=== PATIENT | female | born 1935 | race Caucasian/White ===

== ENCOUNTER 2016-11-05 14:56 | Emergency (ER) | payer MEDICARE ==
[2016-11-05 15:12] VITALS: BMI 19.3
--- NOTE | 2016-11-05 15:50 | EDPRACDOC ---
- General Information Chief Complaint: Generalized Weakness Stated Complaint: SENT BY DR. FABIÁN ESPINO HGB Time Seen by Provider: 11/05/16 15:35 Information Source: Patient Mode Of Arrival: Car Home Medications: Home Medications Aspirin (Enteric Coated) [Halfprin] 81 mg PO DAILY 09/23/14 Cholecalciferol [Vitamin D3 (cholecalciferol)] 1,000 units PO DAILY 09/23/14 Fluticasone/Salmeterol [Advair 100-50 Diskus] 1 puff INH BID 09/23/14 Hydrochlorothiazide 25 mg PO DAILY 09/23/14 Multivit-Min/FA/Lycopene/Lut [Centrum Silver Tablet] 1 tab PO BID 09/23/14 Calcium Carb & Cit/Vitamin D3 [Calcium + D3 ER Tab (600mg/500IU)] 2 tabs PO BID 02/03/15 Hydrocodone/Chlorphen P-Stirex [Tussicaps 5 mg-4 mg Capsule] 1 each PO BID #20 cap.sr.12h 02/03/15 Omeprazole Magnesium [Prilosec Otc] 20 mg PO DAILY 02/03/15 Albuterol Sulfate [Proventil Hfa] 2 puff INH Q4 PRN 02/05/15 Benzonatate [Tessalon Perle] 200 mg PO TID PRN #14 capsule 02/05/15 Hydrocodone/Chlorphen Polis [Tussionex] 5 ml PO BID PRN #60 udc 02/05/15 Ondansetron [Zofran Odt] 4 mg PO Q6H PRN #30 tab.rapdis 02/10/15 Lubiprostone [Amitiza] 24 mcg PO BID #60 capsule 02/17/15 Polyethylene Glycol 3350 [Miralax] 17 gm PO DAILY #30 powd.pack 02/17/15 Allergies/Adverse Reactions: Allergies Allergy/AdvReac Type Severity Reaction Status Date / Time ampicillin Allergy Unknown Verified 02/10/15 03:50 ciprofloxacin [From Cipro] Allergy Rash-Genera Verified 02/10/15 03:50 lized ciprofloxacin HCl Allergy Rash-Genera Verified 02/10/15 03:50 [From Cipro] lized Penicillins Allergy Fainting Verified 02/10/15 03:50 Sulfa (Sulfonamide Allergy Edema-Local Verified 02/10/15 03:50 Antibiotics) ized - History of 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 CURRENTLY RECEIVING CHEMOTHERAPY FROM ON LICENSE OF [facility]. ROUTINE BLOOD WORK AT PCP 'S OFFICE TODAY DEMONSTRATE A HEMOGLOBIN OF 7.1 PATIENT WAS REFERRED TO EMERGENCY DEPARTMENT FOR BLOOD TRANSFUSION. PATIENT HAS RECENTLY DEVELOPED HYPERTENSION. PATIENT STATES THAT SHE FEELS WEAK SHORT OF BREATH WITH ANY KIND OF EXERTION MOVEMENT. NO CHEST PAIN. ED Past Medical History - Patient Medical History Cardiac History: Reports: Hypertension, Hypercholesterolemia Respiratory History: Reports: Asthma, Pneumonia (RECENT PNA) GI/ History: Reports: Renal Disease, Gastroesophageal Reflux, Diverticulosis. Denies: Urinary Tract Infection Musculoskeletal History: Reports: Osteoarthritis Psychological History: Reports: Depression, Anxiety. Denies: Substance Use Disorder Systemic History: Reports: Cancer (ovarian) Surgical History: Reports: Hysterectomy, Tonsillectomy/Adnoidectomy - Social Medical History Smoking Status: Never smoker Social History: Denies: Barbiturate Use, Benzodiazipine Use, Substance Use Disorder - Physical Exam Constitutional: No apparent distress, Alert Oriented to: Time, Person, Place Last recorded Vital Signs: Last Vital Signs Temp 98.4 F 11/05/16 15:07 Pulse 97 11/05/16 15:07 Resp 20 11/05/16 15:07 BP 167/83 11/05/16 15:07 Pulse Ox 99 11/05/16 15:07 Oxygen Pulse Oxygen Saturation 99 O2 Device Room Air Oxygen Flow Rate Fraction of Inspired Oxygen ( FIO2) - HEENT Eye Exam: Pale Conjunctiva. negative: Edema - Respiratory/Cardiovascular Respiratory: Normal - CTA Cardiovascular: Normal - GI Auscultation: Normal Palpation: Normal Tenderness: Non tender Hensley's Sign: Negative - Bladder: Normal - Musculoskeletal Back: Normal Extremities: Normal - Integumentary Skin: Normal - Neurologic Memory Impaired: Normal Mood Description: Normal Thought: Coherent Perception: Normal - Departure Disposition: Home Final Diagnosis: Symptomatic anemia Instructions: Weakness (General) Education/Counseling Given To: Patient Education/Counseling Given Regarding: Diagnosis, Treatment, Prognosis Referrals: Mimi Miguel MD [Primary Care Provider] - One Week
[2016-11-05 16:11] LABS: AUTOMATED BASOPHIL 0.6 % (0-2); AUTOMATED EOSINOPHIL 0.7 % (0-5); AUTOMATED LYMPH 52.5 % (17-44); AUTOMATED NEUTROPHIL 30.2 % (45-76); MPV 7.3 fL (7.4-10.4)
[2016-11-05 16:18] LABS: BLOOD UREA NITROGEN 20 MG/DL (7-17); CALCIUM 9.8 MG/DL (8.4-10.2); CALCULATED OSMOLALITY 256 MOs/Kg (270-290); CHLORIDE 94 mEq/L (98-107); GLUCOSE 100 MG/DL (70-99); SODIUM LEVEL 131 mEq/L (137-146)
[2016-11-05 19:47] VITALS: PULSE 78
[2016-11-05 20:47] VITALS: BP 146/68; TEMP 97.5
== END 2016-11-05 20:57 | disposition home or self-care (01) ==
LOC: ED 14:56
DX: D64.9 Anemia, unspecified (principal)
CPT/HCPCS: 36415; 36430; 80048; 85025; 86850; 86900; 86901; 86920; 99283; P9016